=== PATIENT | female | born 1935 | race Caucasian/White ===

== ENCOUNTER 2019-01-30 11:08 | Observation (INO) | payer MEDICARE, BC ==
--- NOTE | 2019-01-30 11:35 | EDM.PDOC ---
ED HPI GENERAL MEDICAL PROBLEM - General Stated Complaint: Heart issue Time Seen by Provider: 01/30/19 11:10 Source of Information: Reports: Patient History Limitations: Reports: No Limitations - History of Present Illness INITIAL COMMENTS - FREE TEXT/NARRATIVE: Pt has chronic cauda-equina syndrome brought into emergency room by EMS for dizziness. According to patient, she got up in the morning and felt urge to urinate. So she got out of the bed and got into her wheel chair and went to the toilet and urinated. As she was getting up started to feel weak and dizzy, she came back to her bed, felt exhausted and started to sweat. Lied down in the bed and the symptoms gradually resolved, but has been feeling weak and tired hence called EMS. No chest pain, chest tightness, no shortness of breath. No headache.No loss of consciousness. PT has no sensation below her waist form her chronic cauda equina syndrome.. Onset: Today Onset Date: 01/30/19 Onset Time: 07:00 Duration: Resolved Prior to Arrival Location: Reports: Generalized Severity: Mild Improves with: Reports: None Worsens with: Reports: None Associated Symptoms: Reports: Diaphoresis, Nausea/Vomiting, Weakness. Denies: Confusion, Chest Pain, Cough, Fever/Chills, Headaches, Loss of Appetite, Rash, Seizure, Shortness of Breath, Syncope - Related Data Allergies Allergy/AdvReac Type Severity Reaction Status Date / Time codeine Allergy Nausea and Verified 01/30/19 11:55 Vomiting hydrocodone Allergy Nausea and Verified 01/30/19 11:55 Vomiting morphine Allergy Nausea and Verified 01/30/19 11:55 Vomiting oxycodone Allergy Nausea and Verified 01/30/19 11:55 Vomiting Home Meds: Home Meds Alendronate [Fosamax] 70 mg PO WEEKLY 02/03/15 [History] amLODIPine Besylate [Amlodipine Besylate] 2.5 mg PO DAILY 02/03/15 [History] Aspirin 81 mg PO DAILY 06/01/15 [History] Multivitamin [Multivitamins] 1 each PO DAILY 06/01/15 [History] Alendronate [Fosamax] 70 mg PO Th@0600 tablet 06/15/15 [Rx] Aspirin 81 mg PO DAILY tab.chew 06/15/15 [Rx] Baclofen [Lioresal] 10 mg PO TID #90 tablet 06/15/15 [Rx] Calcium Carbonate [Tums] 1,000 mg PO BID tab.chew 06/15/15 [Rx] Digoxin [Lanoxin] 125 mcg PO DAILY tablet 06/15/15 [Rx] Lidocaine 5% [Lidoderm 5%] 1 patch TOP DAILY #30 patch 06/15/15 [Rx] Lisinopril [Prinivil] 20 mg PO DAILY tablet 06/15/15 [Rx] Metoprolol Tartrate [Lopressor] 25 mg PO BID tablet 06/15/15 [Rx] Polyethylene Glycol 3350 [MiraLAX] 17 gm PO BEDTIME PRN #0 packet 06/15/15 [Rx] Promethazine [Phenergan] 12.5 mg PO TIDAC #90 tablet 06/15/15 [Rx] Remove Patch 1 ea TRDERM Q72H #90 each 06/15/15 [Rx] amLODIPine [Norvasc] 2.5 mg PO DAILY tablet 06/15/15 [Rx] fentaNYL [Duragesic] 25 mcg TD ASDIRECTED 01/30/19 [History] Past Medical History - Past Health History Medical/Surgical History: Denies Medical/Surgical History Other HEENT History: starting of cataracts Other Respiratory History: upper rt lobe removed 1954, treated Other Gastrointestinal History: no meds Other Genitourinary History: Occasional difficulty with urination and bowel movements d/t neuropathy and numbness associated with severe back pain/injury. 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 Numbness and tingling to both legs and feet. Other Endocrine/Metabolic History: Growth on thyroid at past check up, PCP told not to be concerned about it. Other Hematologic History: takes coumadin afib - Past Surgical History Other Musculoskeletal Surgeries/Procedures:: past hx back surgery Social & Family History - Living Situation & Occupation Living situation: Reports: , with Family Occupation: Retired ED ROS GENERAL - Review of Systems Review Of Systems: See Below Constitutional: Reports: Weakness, Diaphoresis. Denies: Fever, Chills, Decreased Appetite HEENT: Denies: Rhinitis, Throat Pain Respiratory: Denies: Shortness of Breath, Pleuritic Chest Pain, Cough, Sputum Cardiovascular: Denies: Chest Pain, Dyspnea on Exertion, Lightheadedness, Palpitations, Syncope GI/Abdominal: Reports: Nausea. Denies: Abdominal Pain, Constipation, Diarrhea, Vomiting : Denies: Dysuria, Frequency Musculoskeletal: Denies: Joint Pain, Joint Swelling Skin: Denies: Bruising, Pruritis, Rash Neurological: Reports: Pre-Existing Deficit (from cauda equina syndrome) ED EXAM, GENERAL - Physical Exam Exam: See Below Exam Limited By: No Limitations General Appearance: Alert, WD/WN, No Apparent Distress Eye Exam: Bilateral Eye: EOMI, PERRL Ears: Normal External Exam, Normal Canal, Hearing Grossly Normal, Normal TMs Ear Exam: Bilateral Ear: TM normal Nose: Normal Inspection, Normal Mucosa, No Blood Throat/Mouth: Normal Inspection, Normal Lips, Normal Teeth, Normal Gums, Normal Oropharynx, Normal Voice, No Airway Compromise Head: Atraumatic, Normocephalic Neck: Normal Inspection, Supple, Non-Tender, Full Range of Motion Respiratory/Chest: No Respiratory Distress, Lungs Clear, Normal Breath Sounds, No Accessory Muscle Use, Chest Non-Tender Cardiovascular: Normal Peripheral Pulses, Regular Rate, Rhythm, No Edema, No Gallop, No JVD, No Murmur, No Rub GI/Abdominal: Normal Bowel Sounds, Soft, Non-Tender, No Organomegaly, No Distention, No Abnormal Bruit, No Mass Back Exam: Normal Inspection Extremities: Normal Inspection, Normal Range of Motion, Non-Tender, Normal Capillary Refill, No Pedal Edema Neurological: Alert, Oriented, CN II-XII Intact, Other (Chronic spastic deformity of the lower extremity with absent seanations due to cauda equina syndrome) EKG INTERPRETATION EKG Date: 01/30/19 Rhythm: NSR Rate (Beats/Min): 93 [place]: Normal P-Wave: Present QRS: Normal QT: Normal Course - Vital Signs Text/Narrative:: Pt's clinical exam is normal. Vitals are stable. She does have chronic spastic deformity of the lower extremities form cauda equina syndrome. EKG is in normal sinus rhythm. I have ordered cardiac workup. Also CBC and BMP to make sure her electrolytes are stable and she has no infection. Her Troponin is negative. EKG is in Normal sinus rhythm. Reassured there is no cardiac injury. Apparently her hemoglobin is 8.3gms on CBC and her BMP shows BUN of 54 with creat of 0.87. I did question patient on dark stools. Pt declines having melena. I did offer rectal exam, on rectal exam there is tarry black stool in the rectum. Hemoccult assay is positive. Pt and family reassured that she has been having GI bleed, which is the cause of her weakness and dizziness.Plan is to admit patient for observation and have serial H/H done. If her 2 consecutive H/H ere stable, will discharge her home on Iron and have interval upper and lower GI done. If her H/H continue to drop, might need to be transferred for further workup. Pt and family understand and agree with the plan. - Orders/Labs/Meds Orders: Active Orders 24 hr Category Date Time Status EKG Documentation Completion [RC] ASDIRECTED Care 01/30/19 11:27 Active Labs: Laboratory Tests 01/30/19 01/30/19 Range/Units 11:26 11:30 WBC 17.8 H D (4.0-11.0) K/uL RBC 2.74 L (3.80-5.80) M/uL Hgb 8.3 L D (11.5-16.5) g/dL Hct 25.3 L D (37.0-47.0) % MCV 92 (76-96) fL MCH 30.3 (27.0-32.0) pg MCHC 32.8 (31.0-35.0) g/dL RDW 13.2 (11.0-16.0) % Plt Count 224 (150-500) K/uL MPV 9.7 (6.0-10.0) fL Neut % (Auto) 81.5 H (45.0-70.0) % Lymph % (Auto) 15.9 L (20.0-40.0) % Carbon % (Auto) 2.0 L (3.0-10.0) % Eos % (Auto) 0.5 L (1.0-5.0) % Baso % (Auto) 0.1 (0.0-0.5) % Neut # (Auto) 14.47 H (2.00-7.50) K/uL Lymph # (Auto) 2.82 (1.50-4.00) K/uL Carbon # (Auto) 0.36 (0.20-0.80) K/uL Eos # (Auto) 0.08 (0.04-0.40) K/uL Baso # (Auto) 0.02 (0.02-0.10) K/uL Sodium 141 (136-145) mmol/L Potassium 4.4 (3.5-5.1) mmol/L Chloride 106 (98-107) mmol/L Carbon Dioxide 25.5 (21.0-32.0) mmol/L Anion Gap 13.9 (5.0-15.0) mmol/L BUN 54 H* D (8-26) mg/dL Creatinine 0.87 (0.55-1.02) mg/dL Est Cr Clr Drug Dosing TNP Estimated GFR (MDRD) > 60 (>60) MLS/MIN BUN/Creatinine Ratio 62.1 H (6-25) Glucose 170 H D (74-100) mg/dL Calcium 8.4 L (8.5-10.1) mg/dL Total Bilirubin 0.3 (0.0-1.0) mg/dL AST 17 (15-37) U/L ALT 16 (12-78) U/L Alkaline Phosphatase 49 (46-116) U/L Troponin I 0.019 (0.000-0.060) ng/mL Total Protein 5.6 L (6.4-8.2) g/dL Albumin 2.8 L (3.4-5.0) g/dL Globulin 2.8 (2.2-4.2) g/dL Albumin/Globulin Ratio 1.0 (0.8-2.0) Meds: Medications Discontinued Medications Generic Name Dose Route Start Last Admin Trade Name Freq PRN Reason Stop Dose Admin Ondansetron HCl Confirm 01/30/19 11:41 Zofran Administered 01/30/19 11:42 Dose 4 mg .ROUTE .STK-MED ONE Departure - Departure Time of Disposition: 12:30 Disposition: Refer to Observation Condition: Fair Clinical Impression: GI bleed, Blood loss anemia - Discharge Information *PRESCRIPTION DRUG MONITORING PROGRAM REVIEWED*: Not Applicable *COPY OF PRESCRIPTION DRUG MONITORING REPORT IN PATIENT SHARITA: Not Applicable Referrals: PCP,None [Primary Care Provider] - - Problem List & Annotations (1) GI bleed SNOMED Code(s): 01343544 Code(s): K92.2 - GASTROINTESTINAL HEMORRHAGE, UNSPECIFIED Status: Acute Current Visit: Yes (2) Blood loss anemia SNOMED Code(s): 914014220 Code(s): D50.0 - IRON DEFICIENCY ANEMIA SECONDARY TO BLOOD LOSS (CHRONIC) Status: Acute Current Visit: Yes - Problem List Review Problem List Initiated/Reviewed/Updated: Yes - My Orders Last 24 Hours: My Active Orders 01/30/19 11:27 EKG Documentation Completion [RC] ASDIRECTED - Assessment/Plan Last 24 Hours: My Active Orders 01/30/19 11:27 EKG Documentation Completion [RC] ASDIRECTED Assessment:: Acute GI bleed with blood loss anemia Plan: Pt's clinical exam is normal. Vitals are stable. She does have chronic spastic deformity of the lower extremities form cauda equina syndrome. EKG is in normal sinus rhythm. I have ordered cardiac workup. Also CBC and BMP to make sure her electrolytes are stable and she has no infection. Her Troponin is negative. EKG is in Normal sinus rhythm. Reassured there is no cardiac injury. Apparently her hemoglobin is 8.3gms on CBC and her BMP shows BUN of 54 with creat of 0.87. I did question patient on dark stools. Pt declines having melena. I did offer rectal exam, on rectal exam there is tarry black stool in the rectum. Hemoccult assay is positive. Pt and family reassured that she has been having GI bleed, which is the cause of her weakness and dizziness.Plan is to admit patient for observation and have serial H/H done. If her 2 consecutive H/H ere stable, will discharge her home on Iron and have interval upper and lower GI done. If her H/H continue to drop, might need to be transferred for further workup. Pt and family understand and agree with the plan.
[2019-01-30] MEDS ORDERED: Ondansetron 4 MG/2 ML SDV ONE (11:41)
[2019-01-30] MEDS ORDERED: Pantoprazole 40 MG Vial IV ONE (12:49)
[2019-01-30] MEDS ORDERED: Sodium Chloride 0.9% 10 ML Syringe FLUSH PRN (12:49)
[2019-01-30] MEDS ORDERED: Ondansetron 4 MG/2 ML SDV IVPUSH PRN (12:54)
[2019-01-30] MEDS ORDERED: Sodium Chloride 0.9% 1,000 ML IV SCH (13:00)
--- NOTE | 2019-01-30 17:12 | CT ---
DATE OF SERVICE: 01/30/19 CLINICAL DATA: GI bleed UNENHANCED ABDOMEN AND PELVIC CT: Multislice acquisition through the abdomen and pelvis without IV or oral contrast was performed. No priors. There are emphysematous changes in both lower lungs. There are linear densities in both lung bases consistent with linear atelectasis or fibrosis. The heart size is normal. There are calcifications in the region of the aortic valve. The unenhanced liver appears normal. No focal hepatic lesions. The gallbladder appears normal. The spleen appears normal. The pancreas appears normal. The right and left adrenals appear normal. 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 There are two small nonobstructing renal calculi on the left. The kidneys otherwise appear normal. No hydronephrosis or hydroureter. The bladder is fluid-filled and moderately distended. Bladder outlet obstruction should be considered. The stomach is moderately distended and contains gas, fluid, and mixed density material. This may be ingested food. Hematoma within the stomach should at least be considered. Gastric outlet obstruction should be considered. There is asymmetric mural thickening within the rectum. The possibility of an infiltrating neoplasm should be considered. Direct visualization is recommended. No free air. No free fluid. No dilated loops of bowel. No adenopathy. No aortic aneurysm. There is degenerative disc disease throughout the lower thoracic and lumbar spine. There are partial compression fractures at the T11, T12 levels and at multiple levels in the lumbar spine. There is grade 2 spondylolisthesis of L4 on L5. 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 No other significant findings. IMPRESSION: Multiple abnormalities as discussed above. See above recommendation. [id number] MTDD
--- NOTE | 2019-01-30 17:52 | PCM.DCSUM1 ---
Discharge Summary - Hospital Course Free Text/Narrative:: Apparently patient has had blood loss anemia from acute GI bleed. Her hemoglobin is at 8.3gms. Her BMP is normal other then elevated BUN of 54. Pt is tired and weak,but alert and oriented well. She has no upper or lower GI symptoms other than blood loss anemia symptoms. Her rectal exam does shows tarry stools.heme positive. I did discuss the results with patient and her family. Plan is to admit patient to observation here and monitor serial H&H. Apparently her 4 hr H/H is down from 8.3/25 to 7.6/22. There has been drop in her hemoglobin.I did get CT abdomen and pelvis done. It shows a large 13 by 4 cm blood product in the stomach and also there is a nodular appearing eccentric lesion in the rectum. Patient appear to have active upper GI bleed. As her hemoglobin is under 8gms, Blood transfusion was ordered. I did discuss the results with patient and family. As she has active GI bleed, i did recommend transfer to a facility where GI intervention can be done to stop the bleed and monitor. Patient agree to with the plan. I did call [facility], and discuss the findings with Dr. Bernal the hospitalist control panel operator and Dr. Menendez the general surgeon control panel operator. They have agreed to accept patient. Pt is getting her first unit of blood before transfer and one unit for the way. Pt is hemodynamically stable for transfer. Further care per / . Brief History: Presented to emergency room here with c/o dizziness and tiredness today morning.Kindly see the H&P for details. Diagnosis: Stroke: No - Discharge Data Discharge Date: 01/30/19 Discharge Disposition: Home, Self-Care 01 Condition: Good - Discharge Diagnosis/Problem(s) (1) GI bleed SNOMED Code(s): 97183571 ICD Code: K92.2 - GASTROINTESTINAL HEMORRHAGE, UNSPECIFIED Status: Acute Current Visit: Yes (2) Blood loss anemia SNOMED Code(s): 349945265 ICD Code: D50.0 - IRON DEFICIENCY ANEMIA SECONDARY TO BLOOD LOSS (CHRONIC) Status: Acute Current Visit: Yes - Patient Instructions Diet: NPO Activity: Bedrest - Discharge Plan *PRESCRIPTION DRUG MONITORING PROGRAM REVIEWED*: Not Applicable *COPY OF PRESCRIPTION DRUG MONITORING REPORT IN PATIENT SHARITA: Not Applicable Home Medications: Home Meds Multivitamin [Multivitamins] 1 each PO DAILY 06/01/15 [History] Alendronate [Fosamax] 70 mg PO Th@0600 tablet 06/15/15 [Rx] Aspirin 81 mg PO DAILY tab.chew 06/15/15 [Rx] Calcium Carbonate [Tums] 1,000 mg PO BID tab.chew 06/15/15 [Rx] Digoxin [Lanoxin] 125 mcg PO DAILY tablet 06/15/15 [Rx] Lidocaine 5% [Lidoderm 5%] 1 patch TOP DAILY #30 patch 06/15/15 [Rx] Lisinopril [Prinivil] 20 mg PO DAILY tablet 06/15/15 [Rx] Metoprolol Tartrate [Lopressor] 25 mg PO BID tablet 06/15/15 [Rx] Polyethylene Glycol 3350 [MiraLAX] 17 gm PO BEDTIME PRN #0 packet 06/15/15 [Rx] Remove Patch 1 ea TRDERM Q72H #90 each 06/15/15 [Rx] amLODIPine [Norvasc] 2.5 mg PO DAILY tablet 06/15/15 [Rx] Acetaminophen [Tylenol] 650 mg PO Q4HR PRN 01/30/19 [History] Docusate Sodium [Colace] 100 mg PO DAILY PRN 01/30/19 [History] Mirtazapine 7.5 mg PO BEDTIME 01/30/19 [History] Nitroglycerin [Nitrostat] 0.4 mg SL ASDIRECTED PRN 01/30/19 [History] Rivaroxaban [Xarelto] 15 mg PO DAILY 01/30/19 [History] Vit A/C/E AC/Znox/Cupric Oxide [Eye Vitamin-Minerals Tablet] 1 tab PO DAILY [History] fentaNYL [Duragesic] 25 mcg TD ASDIRECTED 01/30/19 [History] Referrals: PCP,None [Primary Care Provider] - - Discharge Summary/Plan Comment DC Time >30 min.: Yes Discharge Summary/Plan Comment: Transferred to [facility] - General Info Date of Service: 01/30/19 Functional Status: Reports: Pain Controlled, Urinating - Review of Systems General: Reports: Weakness, Fatigue. Denies: Fever HEENT: Denies: Headaches, Sinus Congestion, Sore Throat Pulmonary: Denies: Shortness of Breath, Cough, Sputum, Hemoptysis Cardiovascular: Denies: Chest Pain, Palpitations, Lightheadedness Gastrointestinal: Reports: Flatus, Melena, Nausea. Denies: Abdominal Pain, Diarrhea, Vomiting Genitourinary: Denies: Dysuria, Frequency, Burning, Hematuria Musculoskeletal: Reports: Back Pain (chronic). Denies: Joint Pain, Joint Swelling Skin: Denies: Bruising, Pruritis, Rash Neurological: Reports: Pre-Existing Deficit (secondary to chronic cauda equina syndrome) - Patient Data Vitals - Most Recent: Last Vital Signs Temp 99.0 F 01/30/19 17:00 Pulse 118 H 01/30/19 17:00 Resp 20 01/30/19 11:40 BP 102/64 01/30/19 17:00 Pulse Ox 98 01/30/19 17:00 Weight - Most Recent: 42.456 kg Lab Results - Last 24 hrs: Laboratory Results - last 24 hr 01/30/19 01/30/19 01/30/19 Range/Units 11:26 11:30 11:30 WBC 17.8 H D (4.0-11.0) K/uL RBC 2.74 L (3.80-5.80) M/uL Hgb 8.3 L D (11.5-16.5) g/dL Hct 25.3 L D (37.0-47.0) % MCV 92 (76-96) fL MCH 30.3 (27.0-32.0) pg MCHC 32.8 (31.0-35.0) g/dL RDW 13.2 (11.0-16.0) % Plt Count 224 (150-500) K/uL MPV 9.7 (6.0-10.0) fL Neut % (Auto) 81.5 H (45.0-70.0) % Lymph % (Auto) 15.9 L (20.0-40.0) % [place] % (Auto) 2.0 L (3.0-10.0) % Eos % (Auto) 0.5 L (1.0-5.0) % Baso % (Auto) 0.1 (0.0-0.5) % Neut # (Auto) 14.47 H (2.00-7.50) K/uL Lymph # (Auto) 2.82 (1.50-4.00) K/uL [place] # (Auto) 0.36 (0.20-0.80) K/uL Eos # (Auto) 0.08 (0.04-0.40) K/uL Baso # (Auto) 0.02 (0.02-0.10) K/uL PT 10.9 D (9.0-11.5) sec INR 1.1 D (1.0-3.5) APTT 19.6 L (24.4-33.2) SECONDS Sodium 141 (136-145) mmol/L Potassium 4.4 (3.5-5.1) mmol/L Chloride 106 (98-107) mmol/L Carbon Dioxide 25.5 (21.0-32.0) mmol/L Anion Gap 13.9 (5.0-15.0) mmol/L BUN 54 H* D (8-26) mg/dL Creatinine 0.87 (0.55-1.02) mg/dL Est Cr Clr Drug Dosing TNP Estimated GFR (MDRD) > 60 (>60) MLS/MIN BUN/Creatinine Ratio 62.1 H (6-25) Glucose 170 H D (74-100) mg/dL Calcium 8.4 L (8.5-10.1) mg/dL Total Bilirubin 0.3 (0.0-1.0) mg/dL AST 17 (15-37) U/L ALT 16 (12-78) U/L Alkaline Phosphatase 49 (46-116) U/L Troponin I 0.019 (0.000-0.060) ng/mL Total Protein 5.6 L (6.4-8.2) g/dL Albumin 2.8 L (3.4-5.0) g/dL Globulin 2.8 (2.2-4.2) g/dL Albumin/Globulin Ratio 1.0 (0.8-2.0) Blood Type Crossmatch 01/30/19 01/30/19 Range/Units 16:00 16:00 WBC (4.0-11.0) K/uL RBC (3.80-5.80) M/uL Hgb 7.6 L (11.5-16.5) g/dL Hct 22.8 L (37.0-47.0) % MCV (76-96) fL MCH (27.0-32.0) pg MCHC (31.0-35.0) g/dL RDW (11.0-16.0) % Plt Count (150-500) K/uL MPV (6.0-10.0) fL Neut % (Auto) (45.0-70.0) % Lymph % (Auto) (20.0-40.0) % [place] % (Auto) (3.0-10.0) % Eos % (Auto) (1.0-5.0) % Baso % (Auto) (0.0-0.5) % Neut # (Auto) (2.00-7.50) K/uL Lymph # (Auto) (1.50-4.00) K/uL [place] # (Auto) (0.20-0.80) K/uL Eos # (Auto) (0.04-0.40) K/uL Baso # (Auto) (0.02-0.10) K/uL PT (9.0-11.5) sec INR (1.0-3.5) APTT (24.4-33.2) SECONDS Sodium (136-145) mmol/L Potassium (3.5-5.1) mmol/L Chloride (98-107) mmol/L Carbon Dioxide (21.0-32.0) mmol/L Anion Gap (5.0-15.0) mmol/L BUN (8-26) mg/dL Creatinine (0.55-1.02) mg/dL Est Cr Clr Drug Dosing Estimated GFR (MDRD) (>60) MLS/MIN BUN/Creatinine Ratio (6-25) Glucose (74-100) mg/dL Calcium (8.5-10.1) mg/dL Total Bilirubin (0.0-1.0) mg/dL AST (15-37) U/L ALT (12-78) U/L Alkaline Phosphatase (46-116) U/L Troponin I (0.000-0.060) ng/mL Total Protein (6.4-8.2) g/dL Albumin (3.4-5.0) g/dL Globulin (2.2-4.2) g/dL Albumin/Globulin Ratio (0.8-2.0) Blood Type A POSITIVE Crossmatch See Detail EGNO Results - Last 24 hrs: Microbiology 01/30/19 12:43 Stool Occult Blood (GENO) - Final Stool / Feces Med Orders - Current: Current Medications Sodium Chloride (Normal Saline) 1,000 mls @ 50 mls/hr IV ASDIRECTED ZAFAR Last Admin: 01/30/19 13:24 Dose: 50 mls/hr Ondansetron HCl (Zofran) 4 mg IVPUSH Q8H PRN PRN Reason: Nausea/Vomiting Last Admin: 01/30/19 11:36 Dose: 4 mg Sodium Chloride (Saline Flush) 10 ml FLUSH ASDIRECTED PRN PRN Reason: Keep Vein Open Last Admin: 01/30/19 11:27 Dose: 10 ml Discontinued Medications Ondansetron HCl (Zofran) Confirm Administered Dose 4 mg .ROUTE .STK-MED ONE Stop: 01/30/19 11:42 Last Admin: 01/30/19 14:18 Dose: Not Given Pantoprazole Sodium (Protonix Iv) 40 mg IV ONETIME ONE Stop: 01/30/19 12:50 Last Admin: 01/30/19 13:24 Dose: 40 mg - Exam General: Reports: Alert, Oriented, Cooperative HEENT: Reports: Pupils Equal, Pupils Reactive, EOMI, Mucous Membr. Moist/[place] Neck: Reports: Supple Lungs: Reports: Clear to Auscultation, Normal Respiratory Effort Cardiovascular: Reports: Regular Rhythm, Tachycardia GI/Abdominal Exam: Normal Bowel Sounds, Soft, Non-Tender, No Organomegaly, No Distention, No Abnormal Bruit, No Mass, Pelvis Stable Extremities: Normal Inspection, Normal Range of Motion, Non-Tender, No Pedal Edema, Normal Capillary Refill Skin: Reports: Warm, Intact Neurological: Reports: Normal Speech, Normal Tone, Other (chronic lower extremity spasticity from her cauda equina syndrome) Psy/Mental Status: Reports: Alert, Normal Mood
[2019-01-30 19:11] VITALS: BP 108/65; PULSE 112
== END 2019-01-30 19:30 ==
LOC: LB.ED 11:08 → LB.MS 12:34 → UNDOADMOB 12:34 → LB.MS 12:49
PROVIDERS: ADMIT Family Medicine; ATTEND Family Medicine
DX: D50.0 Iron deficiency anemia secondary to blood loss (chronic) (principal); K92.2 Gastrointestinal hemorrhage, unspecified; R19.5 Other fecal abnormalities; K62.89 Other specified diseases of anus and rectum; G83.4 Cauda equina syndrome; R42 Dizziness and giddiness; R61 Generalized hyperhidrosis; R11.2 Nausea with vomiting, unspecified; R53.1 Weakness; Z88.5 Allergy status to narcotic agent; Z79.899 Other long term (current) drug therapy; Z79.82 Long term (current) use of aspirin
CPT/HCPCS: 36415; 36430; 74176; 80053; 82274; 82378; 84484; 85014; 85018; 85025; 85610; 85730; 86850; 86900; 86901; 86920; 86922; 93005; 96374; 96375; 99220; 99285; A0425; A0429; C9113; G0378; J2405; J7030; P9016

== ENCOUNTER 2019-03-26 09:50 | Day surgery (SDC) | payer MEDICARE, BC ==
[~2019-03-26 09:50] MED LIST: Metoclopramide 10 MG/2 ML SDV IV PRN; Sodium Chloride 0.9% 1,000 ML IV SCH
[2019-03-26] MEDS ORDERED: Propofol 200 MG/20 ML SDV ONE (13:45)
[2019-03-26 16:04] VITALS: BP 125/66; PULSE 69
--- NOTE | 2019-03-26 20:47 | OR ---
DATE OF OPERATION: 03/26/2019 SURGEON: Alejandro Beckham MD PREOPERATIVE DIAGNOSIS: Rectal thickening on CT scan and recent history of gastric ulcer. POSTOPERATIVE DIAGNOSIS: Rectal thickening on CT scan and recent history of gastric ulcer. PROCEDURE: Colonoscopy with biopsy and EGD. ANESTHESIA: MAC. ESTIMATED BLOOD LOSS: Minimal. COMPLICATIONS: None. INDICATION FOR THE PROCEDURE: Patient is an 83-year-old female who at the end of January was had an upper scope, found to have a gastric ulcer that was bleeding. Bleeding controlled. She has been on anti-antacid therapy since then. She is here today for a repeat EGD. During that admission, she also had a CT scan showing some thickening of her rectum. She is here today for colonoscopy. Last colonoscopy was 10-15 years ago. Otherwise denies any change in bowel habits. DESCRIPTION OF THE PROCEDURE: Informed consent was obtained from the patient. The patient was taken to the operating room, placed on table in left lateral decubitus position. Monitored anesthesia care was administered. Esophagogastroscope then advanced through the mouth and down to the level of second portion of the duodenum. Duodenum was normal. No inflammation. No ulcers. Gastric antrum was normal. No inflammation. No ulcers. No ulcers noted or any signs of a heel ulcer noted in the stomach itself. Retroflexion performed, which was also unremarkable. Scope was then withdrawn. Distal esophagus was also unremarkable and stomach was desufflated and scope removed. Then turned our attention to the anus. Digital rectal exam performed and was normal. Colonoscope then advanced through the anus. We did reach the level of the splenic flexure. The patient did have significant looping up to this point. Unable to safely advance the scope. Procedure was aborted and scope slowly withdrawn through the descending and sigmoid colon. No masses, no polyps, no areas of ischemia or inflammation identified. The distal rectum which had previously been taken on CT scan also appeared unremarkable. Random cold forceps biopsies taken in this location, however, did appear to be normal. The scope was then withdrawn. FINDINGS: Normal stomach with no signs of ulcer. Also normal rectum. No signs of inflammation or cancer. RECOMMENDATIONS: No further upper scopes required. Continue current medical management. Would not recommend any further colonoscopies for patient. JOHANNY/AJSON /[id number]
== END 2019-03-26 16:00 | disposition home or self-care (01) ==
LOC: LB.SDS 09:50
PROVIDERS: ATTEND Surgery
DX: R93.3 Abnormal findings on diagnostic imaging of other parts of digestive tract (principal); I10 Essential (primary) hypertension; Z87.11 Personal history of peptic ulcer disease
CPT/HCPCS: 43235; 43246; 45380; 88305; G0121; J2704; J7030

== ENCOUNTER 2022-01-13 10:02 | Emergency (ER) | payer MEDICARE, BC, MEDICAID ==
[2022-01-13 10:23] VITALS: BP 142/73; PULSE 105
[2022-01-13] MEDS ORDERED: Azithromycin 250 MG Tab ONE (14:00)
[2022-01-13] MEDS ORDERED: Amoxicillin/Clavulanate K 875-125 MG Tab ONE (14:00)
== END 2022-01-13 14:40 | disposition home or self-care (01) ==
LOC: LB.ED 10:02
DX: J18.9 Pneumonia, unspecified organism (principal); I10 Essential (primary) hypertension; I48.91 Unspecified atrial fibrillation; Z20.822 Contact with and (suspected) exposure to COVID-19; Z88.5 Allergy status to narcotic agent; Z79.899 Other long term (current) drug therapy
CPT/HCPCS: 36415; 71045; 80048; 83605; 85025; 87804; 87804-59; 93005; 99282; 99285-25; A9270-GY; U0002